=== PATIENT | male | born 1965 | race Caucasian/White ===

== ENCOUNTER 2019-11-04 11:01 | Day surgery (SDC) | payer BC ==
[2019-11-02 17:56] VITALS: BMI 29.2
[~2019-11-04 11:01] MED LIST: LACTATED RINGERS 1,000 ML IV SCH; LIDOCAINE 1% (10MG/ML) FOR IV START INTRADERMA PRN
[2019-11-04 11:42] VITALS: RESP 16; TEMP 97
[2019-11-04] MEDS ORDERED: LIDOCAINE 1% INJ 10MG/ML (20 ML MDV) ONE (12:12)
[2019-11-04] MEDS ORDERED: PROPOFOL 10 MG/ML 20 ML VIAL IV ONE (12:12)
[2019-11-04] MEDS ORDERED: LACTATED RINGERS 1,000 ML IV ONE (12:25)
--- NOTE | 2019-11-04 12:27 | P.PCN ---
Date of Procedure: 11/04/19 Procedure(s) Performed: BRIEF HISTORY: Patient is a 53-year-old pleasant white male scheduled for an elective colonoscopy as a part of screening for colorectal neoplasia and family history of colon cancer. His dad was diagnosed with colon cancer at age 60. PROCEDURE PERFORMED: Colonoscopy Polypectomy . PREOPERATIVE DIAGNOSIS: Screening for colon cancer/family history of colon cancer IV sedation per Anesthesia. PROCEDURE: After informed consent was obtained, the patient, was brought into the endoscopy unit. IV sedation was administered by Anesthesia under continuous monitoring. Digital rectal examination was normal. Initially the Olympus CF-160 flexible video colonoscope was then inserted in the rectum, gradually advanced into the cecum without any difficulty. Careful examination was performed as the scope was gradually being withdrawn. Ileocecal valve and the appendiceal orifice were visualized and appeared normal. Prep was very. Mucosa of the cecum, appeared normal. In the ascending colon there was a 5-6 mm sessile polyp that was removed by snare polypectomy. Rest of the ascending colon, transverse colon, descending colon, appeared normal. In the sigmoid colon there was a 5 mm polyp that was removed by snare polypectomy. Rest of the sigmoid colon, and rectum appeared normal. Retroflexion was performed in the rectum and no lesions were seen. The patient tolerated the procedure well. IMPRESSION: 5-6 mm sessile ascending colon polyp status post polypectomy 5 mm sigmoid colon polyp status post polypectomy RECOMMENDATIONS: Findings of this examination were discussed with the patient as well as his family. He was advised to follow with the biopsy results. If the biopsy shows an adenoma he can have a repeat colonoscopy in 5 years
[2019-11-04 12:30] VITALS: BP 107/70; PULSE 63
== END 2019-11-04 12:58 | disposition home or self-care (01) ==
LOC: ORWHC2ENDO 11:01
PROVIDERS: ATTEND Internal Medicine Gastroenterology
DX: Z12.11 Encounter for screening for malignant neoplasm of colon (principal); D12.2 Benign neoplasm of ascending colon; D12.5 Benign neoplasm of sigmoid colon; Z80.0 Family history of malignant neoplasm of digestive organs
CPT/HCPCS: 88305; 45385; J2001; J2704